=== PATIENT | male | born 1965 | race Asian ===

== ENCOUNTER 2024-05-26 06:48 | Day surgery (SDC) | payer OTHER ==
[~2024-05-26] VITALS: Ht 177.8 cm; Wt 94.3 kg
[2024-05-26] MEDS ORDERED: fentaNYL citrate 0.05 MG/ML VIAL ONE (08:09)
[2024-05-26] MEDS: fentaNYL citrate 0.05 MG/ML VIAL IVP ONE (08:42)
[2024-05-26] MEDS: LIDOCAINE 2% 100 MG/5 ML UJET TP ONE (08:48)
== END 2024-05-26 09:55 | disposition home or self-care (01) ==
LOC: MOR 06:48 → MMU 06:48 → MOR 09:55
PROVIDERS: ATTEND Internal Medicine Gastroenterology
DX: Z12.11 Encounter for screening for malignant neoplasm of colon (principal); K64.4 Residual hemorrhoidal skin tags; K62.1 Rectal polyp; K63.5 Polyp of colon; E11.9 Type 2 diabetes mellitus without complications; E78.00 Pure hypercholesterolemia, unspecified; Z86.010 Personal history of colon polyps; Z79.899 Other long term (current) drug therapy; Z98.890 Other specified postprocedural states
CPT/HCPCS: 45385; 82948; J3010